=== PATIENT | female | born 1970 | race Caucasian/White ===

== ENCOUNTER 2022-01-23 10:15 | Day surgery (SDC) | payer OTHER ==
[2022-01-23] MEDS ORDERED: NA CHLORIDE 0.9% 50 ML ONE (10:43)
[2022-01-23] MEDS ORDERED: Ringers Lactate 1,000 ML IV ONE (10:43)
[2022-01-23] MEDS ORDERED: CEFAZOLIN SODIUM 1 GM/VIAL ONE (10:43)
[2022-01-23 11:04] LABS: Absolute Lymphocytes (CBC) 0.9 K/uL (0.7-4.9); Hematocrit 40.9 % (36.0-45.0); Lymphocytes % 16.1 % (15.3-44.8); RBC Red Blood Cell Count 4.27 M/uL (3.86-4.86)
--- NOTE | 2022-01-23 11:04 | RAD REPORT ---
EXAM DESCRIPTION: RAD - Chest Pa And Lat (2 Views) - 01/23/2022 10:59 am CLINICAL HISTORY: PRE-OP Chest pain. COMPARISON: No comparisons FINDINGS: The lungs are clear. The heart is normal in size. No displaced fractures. IMPRESSION: No acute or concerning finding suspected.
[2022-01-23] MEDS ORDERED: propofoL 200 MG/20 ML VIAL IV ONE ×2 (11:17→12:31)
[2022-01-23] MEDS ORDERED: LIDOCAINE 2% MPF 5 ML VIAL ONE (11:18)
[2022-01-23] MEDS ORDERED: FENTANYL CITR 100 MCG/2 ML ONE (11:18)
[2022-01-23] MEDS ORDERED: MIDAZOLAM HCL 2 MG/2 ML INJ ONE (11:18)
[2022-01-23 11:23] LABS: BUN Blood Urea Nitrogen 14 mg/dL (7-18); Bicarbonate 23 mmol/L (21-32); Glucose Level 117 mg/dL (74-106); Sodium Level 141 mmol/L (136-145)
[2022-01-23 11:24] LABS: C-Reactive Protein < 2.90 mg/L (<3.00)
[2022-01-23] MEDS: LIDOCAINE 1% MPF 30 ML VIAL ONE (12:10)
[2022-01-23] MEDS ORDERED: Phenylephrine HCl 10 MG/ML 1 ML VIAL ONE (12:24)
[2022-01-23] MEDS ORDERED: HYDROMORPHONE HCL 1 MG/ML INJ ONE (12:58)
[2022-01-23] MEDS ORDERED: HYDROCODONE/APAP 7.5/325 MG TAB PO PRN (12:58)
[2022-01-23] MEDS ORDERED: KETOROLAC 30 MG/ML INJ ONE (13:03)
--- NOTE | 2022-01-23 13:03 | P.OP ---
Date of Service: 01/23/22 Preop diagnosis: Right-sided headache, rule out temporal arteritis Postop diagnosis: Same Procedure performed: Right temporal artery biopsy, Doppler Surgeon: Larry Thomas MD Drawer Waxer: Keny ARIAS Estimated blood loss: Minimal Specimen: Right temporal artery Findings: As above Anesthesia: MAC Complications: None Drains: None Fluids and blood products: None applicable Disposition: Recovery room Operative note: Patient brought to the OR and placed in supine position. Patient had MAC anesthesia begun. Patient prepped and draped in the usual sterile fashion. Marcaine 0.5% infiltrated locally. 4 cm incision made anterior and superior to the right ear after Doppler device used to isolate a branch of the temporal artery. Subcutaneous tissue divided. Deep to the subcutaneous tissue, branch of the temporal artery identified. Proximal and distal control obtained. 4 cm segment of the temporal artery excised and sent to pathology as specimen. 4-0 silk used to tie off both ends. Wound irrigated bleeding controlled cautery. 4-0 chromic used to reapproximate subcutaneous tissue and closed skin. Sterile dressing applied. Patient taken to the recovery room in good general condition. CC: Dr. Ho's office
[2022-01-23] MEDS: HYDROMORPHONE HCL 1 MG/ML INJ ONE ×2 (13:36→13:46)
[2022-01-23] MEDS ORDERED: HYDROCODONE/APAP 7.5/325 MG TAB ONE (14:06)
[2022-01-23 14:34] VITALS: BP 100/58; TEMP 97.9; O2SAT 99
--- NOTE | 2022-01-23 17:32 | EKG ---
Test Date: 2022-01-23 Test Time: 10:02:01 Legal Receptionist: WADE MEASUREMENT RESULTS: Intervals: Rate: 64 MA: 148 QRSD: 92 QT: 406 QTc: 418 [place]: P: 69 MA: 148 QRS: 72 T: 60 INTERPRETIVE STATEMENTS: Normal sinus rhythm Normal ECG No previous ECG available for comparison Electronically Signed On 01-23-22 17:31:05 CDT by Hilario Ahn
== END 2022-01-23 14:30 | disposition home or self-care (01) ==
LOC: OR 10:15
PROVIDERS: ATTEND Surgery
PROC: 03BS0ZX Excision of Right Temporal Artery, Open Approach, Diagnostic (ICD-10-PCS; principal; 2022-01-23 12:15)
DX: R51.9 Headache, unspecified (principal); Z20.822 Contact with and (suspected) exposure to COVID-19
CPT/HCPCS: 93005; 85025; 80048; 36415; 88305; 85652; 86140; 71046; 37609; U0003; J2704 ×2; J2370; J2250; J3010; J1170 ×2; J7120; J0690